=== PATIENT | male | born 1955 | race Caucasian/White ===

== ENCOUNTER 2018-02-07 07:39 | Emergency (ER) | payer SELFPAY ==
[2018-02-07 08:08] VITALS: BP 157/98
[2018-02-07] MEDS ORDERED: Erythromycin OPTH OINT* APPLIC OINT LEFT EYE ONE (08:26)
--- NOTE | 2018-02-07 08:27 | UC ---
Eye Complaint HPI - HPI Summary HPI Summary: Awoke with left eye swollen with some drainage. Did get water splashed in the eye at work 2 weeks ago. - History of Current Complaint Chief Complaint: UCEye Stated Complaint: WC-LFT EYE INJURY Time Seen by Provider: 02/07/18 08:11 Hx Obtained From: Patient Onset/Duration: Sudden Onset - this morning, Still Present Timing: Constant Severity Initially: Moderate Severity Currently: Moderate Pain Intensity: 0 Character: Dull Aggravating Factor(s): Nothing Alleviating Factor(s): Nothing Associated Signs And Symptoms: Positive: Drainage (Clear), Swelling - Risk Factors Penetrating Injury Risk Factor: Negative Globe Rupture Risk Factors: Negative Acute Glaucoma Risk Factors: Negative - Allergies/Home Medications Allergies/Adverse Reactions: Allergies Allergy/AdvReac Type Severity Reaction Status Date / Time amoxicillin Allergy GI Upset Verified 02/07/18 07:58 ampicillin Allergy GI Upset Verified 02/07/18 07:58 Home Medications: Home Medications Ibuprofen TAB* [Advil TAB*] 400 mg PO Q6H PRN 02/07/18 [History Confirmed ] PMH/Surg Hx/FS Hx/Imm Hx Cardiovascular History: Cardiac Disease - Surgical History Surgical History: Yes Surgery Procedure, Year, and Place: L knee. L wirst x 5 - Family History Known Family History: Positive: Cardiac Disease - Social History Occupation: Employed Part-time Lives: Alone Alcohol Use: Occasionally Substance Use Type: None Smoking Status (MU): Never Smoked Tobacco Review of Systems Eyes: Blurred Vision, Eye Redness Respiratory: Cough Is Patient Immunocompromised?: No All Other Systems Reviewed And Are Negative: Yes Physical Exam Triage Information Reviewed: Yes Appearance: Well-Appearing, No Pain Distress, Well-Nourished Vital Signs: Initial Vital Signs Temp 97.5 F 02/07/18 08:00 Pulse 68 02/07/18 08:00 Resp 20 02/07/18 08:00 BP 157/98 02/07/18 08:00 Pulse Ox 99 02/07/18 08:00 Vital Signs Reviewed: Yes Eyes: Positive: Conjunctiva Clear - OD, Conjunctiva Inflamed - OS, Other: - angioedema upper> lower lids ENT: Positive: Pharynx normal, Nasal congestion - with allergic changes, TMs normal Dental Exam: Normal Neck exam: Normal Respiratory Exam: Normal Cardiovascular Exam: Normal Musculoskeletal Exam: Normal Neurological Exam: Normal Psychological Exam: Normal Skin Exam: Normal Eye Complaint Course/Dx - Differential Dx/Diagnosis Differential Diagnosis/HQI/PQRI: Conjunctivitis, Keratitis, Periorbital Cellulitis Provider Diagnoses: Viral conjunctivitis. Angioedema eyelid Discharge - Sign-Out/Discharge Documenting (check all that apply): Discharge - Discharge Plan Condition: Stable Disposition: HOME Patient Education Materials: Conjunctivitis (ED), Angioedema (ED), Erythromycin (Into the eye) Referrals: Non Staff,Doctor [Primary Care Provider] - Additional Instructions: EYE OINTMENT USE: Wash hands. Place 1/4" strip across tip of finger. Pull lower lid down with the index finger and stabilize the ointment finger with the middle finger and scrape the ointment off on the lid. Pull the lid out and let go as you look down. - Billing Disposition and Condition Condition: STABLE Disposition: HOME
== END 2018-02-07 08:44 | disposition home or self-care (01) ==
LOC: UCCORT 07:39
DX: B30.9 Viral conjunctivitis, unspecified (principal); T78.3XXA Angioneurotic edema, initial encounter; Z88.3 Allergy status to other anti-infective agents
CPT/HCPCS: 99202; A9270-GY; G0463